=== PATIENT | female | born 1965 | race Caucasian/White ===

== ENCOUNTER 2016-05-20 08:26 | Day surgery (SDC) | payer BC, MEDICARE ==
--- NOTE | 2016-05-20 13:31 | Operative Note ---
PAIN SERVICE OPERATIVE REPORT DATE OF PROCEDURE: 05/20/2016. PREOPERATIVE DIAGNOSIS: LUMBAR SPONDYLOSIS WITHOUT MYELOPATHY, ICD10 CODE M47.816. PROCEDURE: Radiofrequency rhizotomy right lumbar facets 3-4, 4-5, and 5-1. SURGEON: Francisco Thomas D.O. ANESTHESIA: Local sedation. ANESTHESIA PROVIDER: Michael Wu CRNA. INDICATIONS: This patient presents with pain which is right side, low back. Examination shows tenderness in the lumbar spine. Range of motion does cause pain into the low back with extension. Diagnostics show a disc at 5-1 and multi -level facet spondylosis. A facet series resulted in 75 to 90 percent pain control. Due to the failure of therapies and success of the facet series, the patient presents for rhizotomy for more long-term relief. Due to the revised guidelines limiting the number of levels and bilateral techniques, she is here for the right and will return for the left. DESCRIPTION OF PROCEDURE: Intravenous line, vital sign monitoring, and IV sedation. Prepped and draped with sterile technique. Under imaging, facets in the lumbar spine to the right at 3-4, 4-5, and 5-1 were marked and infiltrated. A 20-gauge rhizotomy cannula was positioned. Stimulation trials were conducted. Rhizotomy burn was performed. Local with anti-inflammatory into the sites. Topical antibiotic and sterile dressings were applied. We will monitor and evaluate. Francisco Thomas D.O. Date Time Job Number: [id number] cc: Michel Fernandes M.D. MTDD
[2016-05-20] MEDS ORDERED: DEXAMETHASONE PRESERVATIVE FREE 10MG/ML VIAL IV ONE (13:44)
[2016-05-20] MEDS ORDERED: BUPIVACAINE 0.5% W/EPI MPF 30 ML VIAL IVP ONE (13:44)
[2016-05-20] MEDS ORDERED: HYDROCODONE/APAP 7.5/325MG TABLET PO ONE (13:44)
[2016-05-20] MEDS ORDERED: LIDOCAINE 1% W/EPI 1:200,000 MPF 30ML SQ ONE (13:44)
[2016-05-20] MEDS ORDERED: LIDOCAINE 2% MDV (20MG/ML) 20ML VIAL IV ONE (14:46)
[2016-05-20] MEDS ORDERED: FENTANYL PF 100MCG/2ML VIAL IV ONE (14:46)
[2016-05-20] MEDS ORDERED: MIDAZOLAM HCL 2MG/2ML VIAL IV ONE (14:46)
[2016-05-20] MEDS ORDERED: PROPOFOL 10 MG/ML VIAL IV ONE (14:46)
== END 2016-05-20 11:40 | disposition home or self-care (01) ==
LOC: SUR 08:26
PROVIDERS: ATTEND Pain Medicine Interventional Pain Medicine
DX: M47.816 Spondylosis without myelopathy or radiculopathy, lumbar region (principal); M06.9 Rheumatoid arthritis, unspecified
CPT/HCPCS: 64635; 64636 ×2; 01936; J1100; J3010

== ENCOUNTER 2016-08-12 10:37 | Day surgery (SDC) | payer BC, MEDICARE ==
--- NOTE | 2016-08-12 07:25 | History and Physical Report ---
CHIEF COMPLAINT/HISTORY OF CHIEF COMPLAINT: This patient presents with a history of intractable radiculitis, but his pain is lumbar. The patient is here for removal of spinal cord stimulator device which was placed for radiculitis on 11/20/15. Although it appeared that the system was working well, there was some migration and attempts at reprogramming were unsuccessful. She was given the option to revise or remove and she opted to remove. PAST MEDICAL HISTORY: Asthmatic bronchitis, hypertension, and thrombophlebitis. PAST SURGICAL HISTORY: Appendectomy, tubal ligation, hysterectomy, gallbladder surgery, stimulator implant. MEDICATIONS ON ADMISSION: List to be provided. ALLERGIES: MORPHINE, ADHESIVE TAPE, AND NONSTEROIDAL ANTIINFLAMMATORIES. FAMILY/PSYCHOSOCIAL HISTORY: Social history - Caffeine. Family history - Diabetes, coronary artery disease, hypertension and cancer. SYSTEMS REVIEW: The patient seems appropriate in no acute distress. The remainder of the systems review is positive for glasses, headaches, bladder dysfunction, reflux, and depression. PHYSICAL EXAMINATION: Height is 5'5", weight is 220. No vital signs. HEENT: Within normal limits. LUNGS: Clear. HEART: Regular rate and rhythm. ABDOMEN: Nontender. MUSCULOSKELETAL: Examination of the musculoskeletal system shows the incisions for the lead placement approximating T11-T12 and T11-T10. The generator site was noted at the left posterior gluteal margin. All of the incisions were intact. Sensory gomez are intact. NEUROLOGIC: Cranial nerves are intact. IMPRESSION: 1. LUMBAR RADICULITIS, ICD10 CODE M54.16 AND M54.17. 2. SPINAL CORD STIMULATOR AND INTERNAL GENERATOR NONFUNCTIONAL. PLAN: The patient is here for removal of the system on an outpatient basis. The potential risks, side effects, and complications have all been carefully reviewed and discussed. Emma WEST D.O. Date & Time JOB NUMBER: [id number] MTDD
[~2016-08-12 10:37] MED LIST: ACETAMINOPHEN 1000MG/100 ML PREMIX IV ONE; CEFAZOLIN 2 Gram 50 ML IVPB ONE; FAMOTIDINE 20MG TABLET PO ONE; MECLIZINE 25 MG TABLET PO ONE; METOCLOPRAMIDE 10 MG TABLET PO ONE
[2016-08-12] MEDS ORDERED: FENTANYL PF 100MCG/2ML VIAL IV ONE (14:00)
[2016-08-12] MEDS ORDERED: ONDANSETRON HCL IV 4 MG/2 ML VIAL IVP ONE (14:00)
[2016-08-12] MEDS ORDERED: OXYCODONE/APAP 10MG-325MG TABLET PO ONE (14:00)
[2016-08-12] MEDS ORDERED: CEFAZOLIN 1G VIAL IM ONE (14:00)
[2016-08-12] MEDS ORDERED: BUPIVACAINE 0.5% W/EPI MPF 30 ML VIAL IVP ONE (14:00)
[2016-08-12] MEDS ORDERED: MIDAZOLAM HCL 2MG/2ML VIAL IV ONE (14:00)
[2016-08-12] MEDS ORDERED: LIDOCAINE 2% MDV (20MG/ML) 20ML VIAL IV ONE (14:00)
[2016-08-12] MEDS ORDERED: LIDOCAINE 1% W/EPI 1:200,000 MPF 30ML SQ ONE (14:00)
[2016-08-12] MEDS ORDERED: PROPOFOL 10 MG/ML VIAL IV ONE (14:00)
[2016-08-12] MEDS ORDERED: HYDROMORPHONE HCL 2 MG/ML VIAL IV ONE ×2 (14:00)
--- NOTE | 2016-08-14 16:56 | Operative Note ---
DATE OF SURGERY: 08/12/2016 PREOPERATIVE DIAGNOSES: 1. Lumbar radiculitis, ICD10 code M54.16 and M54.17. 2. Spinal cord stimulator internal generator 2 leads nonfunctional. OPERATION: 1. Incision, subcutaneous dissection, and removal of 2 spinal cord stimulators indwelling. 2. Incision, subcutaneous dissection, and removal of internal pulse generator with bifurcate extension. Surgeon: Francisco Thomas DO Anesthesia: Local with sedation. Anesthesia Provider: Michael Wu Indication: This patient presents with a history of intractable lumbar radiculitis. He had a 2-lead spinal cord stimulator placed with internal generator. Over time, although the functionality appeared to be good, there was migration which required a revision. Subsequent to the revision and re-stabilization of leads, a second migration occurred. At that point, it was felt that revision would not be appropriate and that removal and consideration of other options would. She is here for removal of the system. PROCEDURE: Intravenous line, vital signs monitoring, IV sedation. Prepped, draped, sterile technique. The incisions for the 2 leads were identified, marked, infiltrated. Incision made and subcutaneous dissection was conducted to the supraspinatus fascia and the [employer] locking anchor each anchor. Then it was removed along with its suture and the 2 leads were removed intact. Electrodes were counted. Incision and subcutaneous dissection at the left posterior superior gluteal margin generator pouch was then performed removing the generator, the bifurcate extensions to the leads. All hardware removed. Antibiotic irrigation, Bovie hemostasis. The incisions were then closed with Vicryl for fascia, running subcuticular Vicryl for skin. A Dermabond closure system was used to secure and approximate the wound. She was transported to the recovery room stable showing no side effects from the procedure or the sedation. When awake and alert, discharge was performed. DISCHARGE INSTRUCTIONS: 1. Sites will remain clean and dry although the Dermabond will allow showering. 2. Standard medication resumed including Levaquin, the antibiotic, 500 mg once a day for 14 days. All other medications resumed. 3. She will be seen in the office in 5-7 days to evaluate the incisional sites. Until then, her activity levels should remain low limiting bend, lift, push, pull. All other instructions provided, numbers to contact with problems given. At that point, she was discharged. Francisco Thomas DO CC: Dr. William MCCARTNEY
== END 2016-08-12 15:00 | disposition home or self-care (01) ==
LOC: SUR 10:37
PROVIDERS: ATTEND Pain Medicine Interventional Pain Medicine
DX: T85.193A Other mechanical complication of implanted electronic neurostimulator, generator, initial encounter (principal); T85.192A Other mechanical complication of implanted electronic neurostimulator of spinal cord electrode (lead), initial encounter; M54.16 Radiculopathy, lumbar region; M54.17 Radiculopathy, lumbosacral region; I10 Essential (primary) hypertension; M06.9 Rheumatoid arthritis, unspecified
CPT/HCPCS: 63661; 63688; 00300; J2405; J3010; J1170; J0690